=== PATIENT | male | born 1990 | race Caucasian/White ===

== ENCOUNTER 2018-06-27 14:58 | Emergency (ER) | payer BC ==
[~2018-06-27] VITALS: Ht 172.7 cm; Wt 74.8 kg
--- NOTE | 2018-06-27 15:20 | NUR ---
aaox3, came to ER c/o diarrhea x 3 days. RR is even and unlabored with NAD noted. Skin is warm and dry. Awaiting MD for eval.
[2018-06-27] MEDS ORDERED: HYDROMORPHONE INJ 0.5 MG/0.5 ML SYRINGE ONE ×2 (15:55→17:33)
[2018-06-27] MEDS ORDERED: ONDANSETRON HCL/PF 4 MG/2 ML VIAL ONE (15:55)
[2018-06-27] MEDS ORDERED: IV NS 0.9% 1,000 ML BAG IV ONE (16:00)
[2018-06-27] MEDS ORDERED: HYDROMORPHONE 1 MG/1 ML DISP.SYRIN IV ONE ×2 (16:00→17:30)
[2018-06-27] MEDS ORDERED: ONDANSETRON HCL/PF - ER 4 MG/2 ML VIAL IV ONE (16:00)
[2018-06-27 16:14] LABS: BASOPHILS # (AUTO) 0.1 /CMM (0.0-0.2); BASOPHILS % (AUTO) 0.7 % (0.0-2.0); EOSINOPHILS % (AUTO) 1.4 % (0.0-6.0); HEMATOCRIT 46 % (39-51); HEMOGLOBIN 15.4 g/dL (13.5-17.5); LYMPHOCYTES # (AUTO) 1.8 /CMM (0.8-4.8); LYMPHOCYTES % (AUTO) 22.9 % (20.0-44.0); MEAN CORPUSCULAR HGB CONC 34 g/dl (31.0-36.0); MEAN CORPUSCULAR VOLUME 101 fL (80-96); MONOCYTES # (AUTO) 0.6 /CMM (0.1-1.30); MONOCYTES % (AUTO) 8.1 % (2.0-12.0); NEUTROPHILS # (AUTO) 5.2 /CMM (1.8-8.9); NEUTROPHILS % (AUTO) 66.9 % (43.0-81.0); PLATELET COUNT (AUTO) 263 /CMM (150-450); RED BLOOD CELL COUNT(AUTO) 4.57 MIL/uL (4.5-6.0); WHITE BLOOD COUNT (AUTO) 7.8 K/uL (4.3-11.0)
[2018-06-27 16:23] LABS: APPEARANCE,URINE Clear (CLEAR); BILIRUBIN,URINE Negative (NEGATIVE); BLOOD, URINE Negative Ery/uL (NEGATIVE); COLOR,URINE Yellow (YELLOW); KETONES,URINE Negative (NEGATIVE); LEUKOCYTE ESTERASE ,URINE Negative (NEGATIVE); NITRITE, URINE Negative (NEGATIVE); PROTEIN,URINE Negative (NEGATIVE); UGLUCOSE Negative (NEGATIVE); UROBILINOGEN,URINE 0.2 EU/dL (0.2)
[2018-06-27 16:34] LABS: CALCIUM, SERUM 8.3 mg/dL (8.5-10.1); CREATININE 0.8 mg/dL (0.6-1.3); POTASSIUM 4.2 mmol/L (3.5-5.1)
[2018-06-27 16:38] LABS: ALBUMIN 3.6 g/dL (3.4-5.0); BILIRUBIN,DIRECT 0.1 mg/dL (0.0-0.2); BILIRUBIN,TOTAL 0.2 mg/dL (0.2-1.0); TOTAL PROTEIN, SERUM 6.7 g/dL (6.4-8.2)
[2018-06-27] MEDS ORDERED: IOHEXOL-300 100 ML VIAL IV ONE (16:38)
[2018-06-27] MEDS ORDERED: CT SWABBABLE VALVE TRANS SET 1 EA INFUS.SET MC ONE (16:38)
[2018-06-27] MEDS ORDERED: IV NS 0.9% 250 ML IV ONE (16:39)
--- NOTE | 2018-06-27 17:30 | NUR ---
Patient is resting comfortably in bed with eyes closed. Easily aroused. VSS
--- NOTE | 2018-06-27 18:10 | NUR ---
BHUMIKA Ray at BS for re-eval.
--- NOTE | 2018-06-27 18:26 | NUR ---
IV removed. Catheter intact and site benign. Pressure and 4x4 applied to site. No bleeding noted.Patient discharged to home in stable condition. Written and verbal after care instructions given. Patient verbalizes understanding of instruction.
[2018-06-27 18:28] VITALS: BP 132/81
== END 2018-06-27 18:29 | disposition home or self-care (01) ==
LOC: ER 15:06
DX: R19.7 Diarrhea, unspecified (principal); D75.89 Other specified diseases of blood and blood-forming organs; N28.89 Other specified disorders of kidney and ureter; R10.30 Lower abdominal pain, unspecified; F32.9 Major depressive disorder, single episode, unspecified; F41.9 Anxiety disorder, unspecified
CPT/HCPCS: 36415; 74177; 80048; 80076; 81001; 85025; 87491; 87591; 96361; 96374; 96375; 96376; 99284; A4606; J2405 ×2; J7030; J7050; Q9967; 81000-TC

== ENCOUNTER 2021-05-08 04:41 | Emergency (ER) | payer BC, OTHER ==
[~2021-05-08] VITALS: Ht 180.3 cm; Wt 78.0 kg
--- NOTE | 2021-05-08 05:00 | NUR ---
PT BIBSELF C/O SORE THROAT X THURSDAY. PT AAOX4 BREATHING EVENLY AND UNLABORED. PT ATTACHED TO MONITOR AND POX. MD AT BEDSIDE. RT AC 20G INITIATED. PT GIVEN BLANKET AND CALL LIGHT WITHIN REACH
[2021-05-08] MEDS ORDERED: MORPHINE SULFATE INJ 4 MG/ML DISP.SYRIN ONE (05:07)
[2021-05-08] MEDS ORDERED: DEXAMETHASONE SOD PHOSPHATE 10 MG/ML VIAL ONE (05:07)
[2021-05-08] MEDS ORDERED: CEFTRIAXONE 1GM BAG (ER ONLY) 50 ML IV ONE (05:07)
[2021-05-08] MEDS: IV NS 0.9% 1,000 ML BAG IV ONE (05:15)
[2021-05-08] MEDS: MORPHINE SULFATE INJ 2 MG/ML DISP.SYRIN IV ONE (05:15)
[2021-05-08] MEDS: DEXAMETHASONE SOD PHOSPHATE 10 MG/ML VIAL IV ONE (05:15)
[2021-05-08] MEDS: CEFTRIAXONE 1 G in IV D5W 50 ML IV ONE (05:16)
[2021-05-08] MEDS ORDERED: TRAM50TA2 PO (05:40)
[2021-05-08] MEDS ORDERED: AMOX-430 PO (05:40)
--- NOTE | 2021-05-08 07:03 | NUR ---
Patient discharged to home in stable condition. Written and verbal after care instructions given. Patient verbalizes understanding of instruction. Pt. ambulatory with a steady gait. IV removed. Catheter intact and site benign. Pressure and 4x4 applied to site. No bleeding noted.
[2021-05-08 07:04] VITALS: BP 125/79
== END 2021-05-08 07:15 | disposition home or self-care (01) ==
LOC: ER 04:46
DX: J03.90 Acute tonsillitis, unspecified (principal); J45.909 Unspecified asthma, uncomplicated
CPT/HCPCS: 87070; 87880; 96365; 96375; 99284; J0696 ×2; J1100; J2270; J7060; 86403-TC

== ENCOUNTER 2021-09-06 13:29 | Emergency (ER) | payer OTHER ==
[~2021-09-06] VITALS: Ht 180.3 cm; Wt 77.1 kg
[~2021-09-06 13:29] MED LIST: AMOX-430 PO; TRAM50TA2 PO
--- NOTE | 2021-09-06 13:31 | NUR ---
TO ER BED 14, C/O ABDOMINAL PAIN AND VOMITING X 1 WEEK, HE THINKS HE IS CONSTIPATED, SMALL BM THIS MORNING, AAOX3, BREATHING EVEN AND NON LABORED
--- NOTE | 2021-09-06 14:35 | NUR ---
TO ER 14,NO APPARENT CHANGE IN CONDITION
[2021-09-06] MEDS ORDERED: DOCU-141 PO (15:43)
[2021-09-06] MEDS ORDERED: BISA-79 PO (15:43)
[2021-09-06 15:56] VITALS: BP 106/87
== END 2021-09-06 15:56 | disposition home or self-care (01) ==
LOC: ER 13:35
DX: K59.00 Constipation, unspecified (principal); J45.909 Unspecified asthma, uncomplicated; F32.A Depression, unspecified; F41.9 Anxiety disorder, unspecified; F90.9 Attention-deficit hyperactivity disorder, unspecified type; Z79.899 Other long term (current) drug therapy
CPT/HCPCS: 74022-TC

== ENCOUNTER 2021-09-23 07:54 | Emergency (ER) | payer OTHER ==
[~2021-09-23] VITALS: Ht 180.3 cm; Wt 77.1 kg
[~2021-09-23 07:54] MED LIST changes: +BISA-79 PO; +DOCU-141 PO
--- NOTE | 2021-09-23 08:07 | NUR ---
BIB SELF C/O ON GOING INTERMITTENT LOWER ABDOMINAL PAIN, VOMITING AND DIARRHEA FOR 4 MONTHS, AND AGAIN YESTERDAY. REPORTS NO BLOOD IN VOMIT. PT REPORTS HE WAS SEEN IN URGENT CARE FOR SAME COMPLAINT AND WAS REFERRED TO ER. PT REPORTS HAVING MIGRAINES AND ATTENDING THERAPY FOR ANXIETY. AAOX4, BREATHING EVEN AND UNLABORED, PULSES 2+ BILATERALLY, SKIN WARM TO TOUCH. ON MONITOR. COMFORT MEASURES IN PLACE.
--- NOTE | 2021-09-23 08:13 | NUR ---
urine sample obtained and sent to lab
--- NOTE | 2021-09-23 08:21 | NUR ---
BLOOD SAMPLE OBTAINED AND SENT TO LAB
[2021-09-23 08:25] LABS: BASOPHILS # (AUTO) 0.1 K/uL (0.0-0.2); BASOPHILS % (AUTO) 0.8 % (0.0-2.0); EOSINOPHILS % (AUTO) 0.4 % (0.0-6.0); HEMATOCRIT 43 % (39-51); HEMOGLOBIN 14.9 g/dL (13.5-17.5); LYMPHOCYTES # (AUTO) 1.3 K/uL (0.8-4.8); LYMPHOCYTES % (AUTO) 12.7 % (20.0-44.0); MEAN CORPUSCULAR HGB CONC 35 g/dl (31.0-36.0); MEAN CORPUSCULAR VOLUME 97 fL (80-96); MONOCYTES # (AUTO) 0.7 K/uL (0.1-1.30); MONOCYTES % (AUTO) 7.1 % (2.0-12.0); NEUTROPHILS # (AUTO) 8.2 K/uL (1.8-8.9); PLATELET COUNT (AUTO) 308 K/uL (150-450); RED BLOOD CELL COUNT(AUTO) 4.44 MIL/uL (4.5-6.0); WHITE BLOOD COUNT (AUTO) 10.3 K/uL (4.3-11.0)
[2021-09-23] MEDS ORDERED: IV NS 0.9% 500 ML BAG IV ONE (08:30)
[2021-09-23 08:38] LABS: CALCIUM, SERUM 8.6 mg/dL (8.5-10.1); CREATININE 0.9 mg/dL (0.6-1.3); POTASSIUM 4.2 mmol/L (3.5-5.1)
[2021-09-23 09:17] VITALS: BP 137/76
--- NOTE | 2021-09-23 09:17 | NUR ---
IV removed. Catheter intact and site benign. Pressure and 4x4 applied to site. No bleeding noted.
--- NOTE | 2021-09-23 09:17 | NUR ---
Patient discharged to home in stable condition. Written and verbal after care instructions given. Patient verbalizes understanding of instruction.
== END 2021-09-23 09:17 | disposition home or self-care (01) ==
LOC: ER 07:55
DX: R10.9 Unspecified abdominal pain (principal); J45.909 Unspecified asthma, uncomplicated; F32.A Depression, unspecified; F41.9 Anxiety disorder, unspecified; Z79.899 Other long term (current) drug therapy
CPT/HCPCS: 36415; 80048; 85025; 99283; J7040